=== PATIENT | male | born 1930 | race Caucasian/White ===

== ENCOUNTER 2021-07-23 11:36 | Observation (INO) | payer OTHER ==
[2021-07-23 14:30] LABS: BASO % 0.3 % (0-2.0); EOS % 0.9 % (0-4.5); HEMATOCRIT 29.3 % (35.4-49); HEMOGLOBIN 10.3 GM/dL (11.7-16.9); LYMPH % 7.6 % (8-40); MCH 32.4 pg (25.7-33.7); MEAN CELL VOLUME 92.6 fl (80-96); MEAN PLT VOLUME 9.7 fl (7.5-11.1); MONO % 7.4 % (3.8-10.2); NEUT % 83.8 % (42.8-82.8); PLATELET COUNT 133 10^3/uL (134-434); RBC 3.16 M/mm3 (4.00-5.60); RDW 14.5 % (11.9-15.9); WHITE BLOOD COUNT 9.5 K/mm3 (4.0-10.0)
[2021-07-23 14:36] LABS: INR 1.21 (0.83-1.09); PROTHROMBIN TIME (PATIENT) 13.9 SEC (9.7-13.0)
[2021-07-23 14:38] LABS: ACTIVATED PTT 33.5 SECONDS (25.2-36.5)
[2021-07-23 14:57] LABS: CALCIUM 8.9 mg/dL (8.5-10.1)
[2021-07-23 14:58] LABS: ALBUMIN 3.4 g/dl (3.4-5.0); BLOOD UREA NITROGEN 16.9 mg/dL (7-18)
[2021-07-23 15:01] LABS: CREATININE 0.8 mg/dL (0.55-1.3)
[2021-07-23 15:03] LABS: BILIRUBIN,TOTAL 1.3 mg/dL (0.2-1)
[2021-07-23 15:22] LABS: EPI CELLS 1 /uL (0-25.1); HYALINE CASTS 25 /uL (0-3.1); URINE APPEARANCE TURBID; URINE BILIRUBIN 3+ (NEGATIVE); URINE COLOR RED; URINE GLUCOSE (UA) NEGATIVE (NEGATIVE); URINE KETONE NEGATIVE (NEGATIVE); URINE LEUK ESTERASE 2+ (NEGATIVE); URINE NITRITE POSITIVE (NEGATIVE); URINE PROTEIN 3+ (NEGATIVE); URINE RBC 11890 /uL (0-23.9); URINE UROBILINOGEN 0.2 mg/dL (0.2-1.0); URINE WBC 19 /uL (0-25.8)
[2021-07-23] MEDS ORDERED: CEFTRIAXONE 1,000 MG in DEXTROSE 5%-WATER - 50 ML IVPB ONE (15:29)
[2021-07-23] MEDS ORDERED: CEFTRIAXONE 1 GM/50 ML BAG ONE (15:48)
[2021-07-23 17:00] LABS: URINE BACTERIA FEW /uL (0-1359)
[2021-07-23] MEDS: SODIUM CHLORIDE 1 GM TABLET PO SCH (22:27)
[2021-07-23 23:49] VITALS: BMI 28.0
[2021-07-24] MEDS: SODIUM CHLORIDE 1 GM TABLET PO SCH (10:25)
[2021-07-24 10:30] LABS: BASO % 0.4 % (0-2.0); HEMATOCRIT 28.6 % (35.4-49); HEMOGLOBIN 9.9 GM/dL (11.7-16.9); LYMPH % 9.1 % (8-40); MCH 32.4 pg (25.7-33.7); MCHC 34.6 g/dl (32.0-35.9); MEAN CELL VOLUME 93.6 fl (80-96); MEAN PLT VOLUME 10.1 fl (7.5-11.1); MONO % 8.1 % (3.8-10.2); NEUT % 80.4 % (42.8-82.8); PLATELET COUNT 120 10^3/uL (134-434); RBC 3.06 M/mm3 (4.00-5.60); RDW 14.4 % (11.9-15.9); WHITE BLOOD COUNT 6.7 K/mm3 (4.0-10.0)
[2021-07-24 11:04] LABS: CALCIUM 8.3 mg/dL (8.5-10.1)
[2021-07-24 11:05] LABS: BLOOD UREA NITROGEN 10.2 mg/dL (7-18)
[2021-07-24 11:08] LABS: CREATININE 0.8 mg/dL (0.55-1.3)
[2021-07-24] MEDS ORDERED: SODIUM CHLORIDE 1 GM TABLET PO SCH (11:30)
[2021-07-24] MEDS ORDERED: TAMSULOSIN HCL 0.4 MG CAP PO SCH (12:26)
[2021-07-24] MEDS ORDERED: D5-1/2NS+10 MEQ KCL - 10 MEQ/1,000 ML INFUS.BAG IV SCH (12:45)
[2021-07-24] MEDS ORDERED: cefTRIAXone SODIUM 1 GM VIAL ONE (14:17)
[2021-07-24] MEDS ORDERED: DEXTROSE 5%-WATER - 50 ML IVPB ONE (14:17)
[2021-07-24] MEDS: POTASSIUM CHLORIDE 10 MEQ in DEXTROSE 5%-NORMAL SALINE 1,000 ML IVPB SCH (14:36)
[2021-07-24] MEDS: CEFTRIAXONE 1 GM in DEXTROSE 5%-WATER - 50 ML IVPB SCH (14:37)
[2021-07-24] MEDS: FINASTERIDE 5 MG TABLET (FP) PO SCH (14:38)
[2021-07-24] MEDS: TOLTERODINE TARTRATE LA 4 MG CAP.SR.24H (FP) PO SCH (14:38)
[2021-07-24] MEDS ORDERED: WARFARIN NA 5 MG, WARFARIN NA 2 MG PO SCH (18:00)
[2021-07-24] MEDS ORDERED: WARFARIN NA 1 MG TABLET PO SCH (18:00)
[2021-07-24] MEDS: ATORVASTATIN CA 10 MG TABLET (FP) PO SCH (21:32)
[2021-07-25] MEDS: POTASSIUM CHLORIDE 10 MEQ in DEXTROSE 5%-NORMAL SALINE 1,000 ML IVPB SCH ×2 (02:23→16:58)
[2021-07-25] MEDS: TAMSULOSIN HCL 0.4 MG CAP PO SCH (08:23)
[2021-07-25] MEDS ORDERED: cefTRIAXone SODIUM 1 GM VIAL ONE (09:10)
[2021-07-25] MEDS ORDERED: DEXTROSE 5%-WATER - 50 ML IVPB ONE (09:11)
[2021-07-25] MEDS: CEFTRIAXONE 1 GM in DEXTROSE 5%-WATER - 50 ML IVPB SCH (09:12)
[2021-07-25] MEDS: FINASTERIDE 5 MG TABLET (FP) PO SCH (09:13)
[2021-07-25] MEDS: TOLTERODINE TARTRATE LA 4 MG CAP.SR.24H (FP) PO SCH (09:14)
[2021-07-25 13:07] LABS: BASO % 0.6 % (0-2.0); EOS % 2.7 % (0-4.5); HEMOGLOBIN 9.6 GM/dL (11.7-16.9); LYMPH % 8.1 % (8-40); MCH 32.1 pg (25.7-33.7); MCHC 34.1 g/dl (32.0-35.9); MEAN CELL VOLUME 93.9 fl (80-96); MEAN PLT VOLUME 9.6 fl (7.5-11.1); MONO % 8.6 % (3.8-10.2); PLATELET COUNT 138 10^3/uL (134-434); RBC 2.98 M/mm3 (4.00-5.60); RDW 14.9 % (11.9-15.9); WHITE BLOOD COUNT 7.6 K/mm3 (4.0-10.0)
[2021-07-25 13:24] LABS: BLOOD UREA NITROGEN 9.8 mg/dL (7-18)
[2021-07-25 13:27] LABS: CREATININE 0.7 mg/dL (0.55-1.3)
[2021-07-25] MEDS ORDERED: HEPARIN NA (PORCINE) 5,000 UNITS/ML 1ML VIAL IVPUSH ONE (13:57)
[2021-07-25] MEDS ORDERED: HEPARIN SOD,PORK IN 0.45% NACL 25,000 UNIT/500 ML INFUS.BAG IVPB SCH (14:00)
[2021-07-25 15:35] LABS: ACTIVATED PTT 26.6 SECONDS (25.2-36.5)
[2021-07-25 16:40] LABS: INR 1.16 (0.83-1.09); PROTHROMBIN TIME (PATIENT) 13.4 SEC (9.7-13.0)
[2021-07-25] MEDS: ATORVASTATIN CA 10 MG TABLET (FP) PO SCH (21:23)
[2021-07-26] MEDS: POTASSIUM CHLORIDE 10 MEQ in DEXTROSE 5%-NORMAL SALINE 1,000 ML IVPB SCH (06:00)
[2021-07-26 06:50] LABS: INR 1.19 (0.83-1.09)
[2021-07-26 08:09] LABS: ACTIVATED PTT > 400.0 SECONDS (25.2-36.5)
[2021-07-26 08:37] VITALS: BP 117/56; PULSE 85; TEMP 98.6
[2021-07-26] MEDS: TAMSULOSIN HCL 0.4 MG CAP PO SCH (08:56)
[2021-07-26] MEDS ORDERED: DEXTROSE 5%-WATER - 50 ML IVPB ONE (09:26)
[2021-07-26] MEDS ORDERED: cefTRIAXone SODIUM 1 GM VIAL ONE (09:26)
[2021-07-26] MEDS: TOLTERODINE TARTRATE LA 4 MG CAP.SR.24H (FP) PO SCH (09:29)
[2021-07-26] MEDS: CEFTRIAXONE 1 GM in DEXTROSE 5%-WATER - 50 ML IVPB SCH (09:30)
[2021-07-26] MEDS: FINASTERIDE 5 MG TABLET (FP) PO SCH (09:30)
[2021-07-26] MEDS ORDERED: ENOXAPARIN NA (PORCINE) 80 MG/0.8 ML DISP.SYRIN SQ SCH (10:00)
[2021-07-26 11:18] LABS: BASO % 0.6 % (0-2.0); EOS % 3.3 % (0-4.5); HEMATOCRIT 29.4 % (35.4-49); HEMOGLOBIN 9.9 GM/dL (11.7-16.9); LYMPH % 10.2 % (8-40); MCH 32.2 pg (25.7-33.7); MCHC 33.7 g/dl (32.0-35.9); MEAN CELL VOLUME 95.5 fl (80-96); MEAN PLT VOLUME 9.8 fl (7.5-11.1); MONO % 5.2 % (3.8-10.2); NEUT % 80.7 % (42.8-82.8); PLATELET COUNT 158 10^3/uL (134-434); RBC 3.07 M/mm3 (4.00-5.60); RDW 14.8 % (11.9-15.9); WHITE BLOOD COUNT 6.6 K/mm3 (4.0-10.0)
[2021-07-26 11:57] LABS: CALCIUM 8.3 mg/dL (8.5-10.1)
[2021-07-26 11:58] LABS: BLOOD UREA NITROGEN 8.6 mg/dL (7-18)
[2021-07-26 12:01] LABS: CREATININE 0.7 mg/dL (0.55-1.3)
[2021-07-26] MEDS ORDERED: TAMSULOSIN HCL 0.4 MG CAP PO SCH (22:00)
== END 2021-07-26 13:51 | disposition home or self-care (01) ==
LOC: JER 11:36 → JERBED 14:15 → J6S 20:33
PROVIDERS: ATTEND Internal Medicine
PROC: 3E03329 Introduction of Other Anti-infective into Peripheral Vein, Percutaneous Approach (ICD-10-PCS; principal; 2021-07-23)
PROC: 3E023GC Introduction of Other Therapeutic Substance into Muscle, Percutaneous Approach (ICD-10-PCS; 2021-07-23)
PROC: 3E033GC Introduction of Other Therapeutic Substance into Peripheral Vein, Percutaneous Approach (ICD-10-PCS; 2021-07-23)
PROC: 3E0337Z Introduction of Electrolytic and Water Balance Substance into Peripheral Vein, Percutaneous Approach (ICD-10-PCS; 2021-07-23)
PROC: 0T9B70Z Drainage of Bladder with Drainage Device, Via Natural or Artificial Opening (ICD-10-PCS; 2021-07-23)
DX: N39.0 Urinary tract infection, site not specified (principal); R33.8 Other retention of urine; R31.0 Gross hematuria; E87.1 Hypo-osmolality and hyponatremia; R14.0 Abdominal distension (gaseous); M62.81 Muscle weakness (generalized); D64.9 Anemia, unspecified; D69.6 Thrombocytopenia, unspecified; D72.9 Disorder of white blood cells, unspecified; I48.91 Unspecified atrial fibrillation; Z79.01 Long term (current) use of anticoagulants; N40.0 Benign prostatic hyperplasia without lower urinary tract symptoms; M81.0 Age-related osteoporosis without current pathological fracture; Z87.891 Personal history of nicotine dependence; Z98.49 Cataract extraction status, unspecified eye; D72.0 Genetic anomalies of leukocytes
CPT/HCPCS: 0241U-QW; 36415; 51702; 80048; 80053; 81003; 82728; 83540; 83550; 85025; 85610; 85730; 87086; 93005; 93010; 96361; 96365; 96366; 96372; 96375; 96376; 97116-GP; 99285-25; G0378; J1644

== ENCOUNTER 2021-07-27 13:31 | Inpatient (IN) | payer OTHER ==
[2021-07-27] MEDS ORDERED: SODIUM CHLORIDE 1,000 ML IV STA (15:05)
[2021-07-27] MEDS ORDERED: CEFTRIAXONE 1 GM/50 ML BAG ONE (15:27)
[2021-07-27] MEDS ORDERED: HEPARIN NA (PORCINE) 5,000 UNITS/ML 1ML VIAL IVPUSH ONE (16:27)
[2021-07-27] MEDS ORDERED: HEPARIN NA (PORCINE) 5,000 UNITS/ML 1ML VIAL IVPUSH PRN ×2 (16:28)
[2021-07-27] MEDS ORDERED: metoPROLOL SUCCINATE 25 MG TAB.SR.24H (FP) PO SCH (16:30)
[2021-07-27 16:35] LABS: BASO % 0.5 % (0-2.0); EOS % 3.1 % (0-4.5); HEMATOCRIT 28.8 % (35.4-49); HEMOGLOBIN 9.9 GM/dL (11.7-16.9); LYMPH % 10.9 % (8-40); MCH 32.3 pg (25.7-33.7); MCHC 34.3 g/dl (32.0-35.9); MEAN CELL VOLUME 94.3 fl (80-96); MEAN PLT VOLUME 9.3 fl (7.5-11.1); MONO % 7.1 % (3.8-10.2); NEUT % 78.4 % (42.8-82.8); PLATELET COUNT 194 10^3/uL (134-434); RBC 3.06 M/mm3 (4.00-5.60); RDW 14.8 % (11.9-15.9); WHITE BLOOD COUNT 7.3 K/mm3 (4.0-10.0)
[2021-07-27 17:08] LABS: ALBUMIN 3.4 g/dl (3.4-5.0); BLOOD UREA NITROGEN 13.2 mg/dL (7-18)
[2021-07-27] MEDS ORDERED: HEPARIN NA (PORCINE) 5,000 UNITS/ML 1ML VIAL ONE (17:10)
[2021-07-27 17:11] LABS: CREATININE 0.7 mg/dL (0.55-1.3)
[2021-07-27 17:12] LABS: BILIRUBIN,TOTAL 0.4 mg/dL (0.2-1); TOT PROT 6.4 g/dl (6.4-8.2)
[2021-07-27] MEDS: HEPARIN SOD,PORK IN 0.45% NACL 25,000 UNIT/500 ML INFUS.BAG IVPB SCH (18:21)
[2021-07-27 18:47] LABS: INR 1.06 (0.83-1.09); PROTHROMBIN TIME (PATIENT) 12.2 SEC (9.7-13.0)
[2021-07-27] MEDS ORDERED: ATORVASTATIN CA 10 MG TABLET (FP) PO SCH (22:00)
[2021-07-27] MEDS ORDERED: ATORVASTATIN CA 10 MG TABLET (FP) ONE (23:16)
[2021-07-27] MEDS ORDERED: TAMSULOSIN HCL 0.4 MG CAP ONE (23:16)
[2021-07-27] MEDS: POTASSIUM CHLORIDE 10 MEQ in DEXTROSE 5%-NORMAL SALINE 1,000 ML IVPB SCH (23:33)
[2021-07-27] MEDS: TAMSULOSIN HCL 0.4 MG CAP PO SCH (23:33)
[2021-07-28] MEDS: POTASSIUM CHLORIDE 10 MEQ in DEXTROSE 5%-NORMAL SALINE 1,000 ML IVPB SCH ×2 (08:06→19:40)
[2021-07-28 09:24] LABS: BASO % 0.5 % (0-2.0); EOS % 3.3 % (0-4.5); HEMATOCRIT 24.4 % (35.4-49); HEMOGLOBIN 8.4 GM/dL (11.7-16.9); LYMPH % 10.1 % (8-40); MCH 32.3 pg (25.7-33.7); MCHC 34.6 g/dl (32.0-35.9); MEAN CELL VOLUME 93.5 fl (80-96); MEAN PLT VOLUME 9.5 fl (7.5-11.1); MONO % 6.9 % (3.8-10.2); NEUT % 79.2 % (42.8-82.8); PLATELET COUNT 163 10^3/uL (134-434); RBC 2.61 M/mm3 (4.00-5.60); WHITE BLOOD COUNT 5.9 K/mm3 (4.0-10.0)
[2021-07-28 09:46] LABS: CALCIUM 8.4 mg/dL (8.5-10.1)
[2021-07-28 09:48] LABS: BLOOD UREA NITROGEN 10.1 mg/dL (7-18)
[2021-07-28 09:50] LABS: CREATININE 0.7 mg/dL (0.55-1.3)
[2021-07-28] MEDS ORDERED: FINASTERIDE 5 MG TABLET (FP) PO SCH (10:00)
[2021-07-28] MEDS ORDERED: TOLTERODINE TARTRATE LA 4 MG CAP.SR.24H (FP) PO SCH (10:00)
[2021-07-28] MEDS ORDERED: TAMSULOSIN HCL 0.4 MG CAP ONE (10:40)
[2021-07-28] MEDS ORDERED: metoPROLOL SUCCINATE 25 MG TAB.SR.24H (FP) PO ONE (10:40)
[2021-07-28] MEDS: TAMSULOSIN HCL 0.4 MG CAP PO SCH ×2 (10:56→21:45)
[2021-07-28] MEDS: HEPARIN SOD,PORK IN 0.45% NACL 25,000 UNIT/500 ML INFUS.BAG IVPB SCH (15:51)
[2021-07-28] MEDS ORDERED: ONDANSETRON 4 MG/2 ML VIAL IVPUSH PRN ×2 (16:29→18:16)
[2021-07-28] MEDS ORDERED: IRON SUCROSE INJECTION 300 MG in SODIUM CHLORIDE 235 ML IVPB ONE ×2 (16:30→18:16)
[2021-07-28] MEDS ORDERED: LACTATED RINGERS SOLUTION 1,000 ML IV SCH ×2 (16:30→18:16)
[2021-07-28] MEDS ORDERED: LIDOCAINE HCL/PF 2% SDV 5ML VIAL ONE (16:36)
[2021-07-28] MEDS ORDERED: PROPOFOL 20 ML ONE (16:37)
[2021-07-28 16:43] LABS: INR 1.11 (0.83-1.09); PROTHROMBIN TIME (PATIENT) 12.8 SEC (9.7-13.0)
[2021-07-28] MEDS ORDERED: VANCOMYCIN 1,000 MG VIAL (RESTRICTED TO ID ONLY) IVPB ONE (17:20)
[2021-07-28] MEDS ORDERED: METOPROLOL TARTRATE 5 MG/5 ML VIAL ONE (17:24)
[2021-07-28] MEDS ORDERED: HEPARIN SOD,PORK IN 0.45% NACL 25,000 UNIT/500 ML INFUS.BAG IVPB SCH ×2 (18:16→22:00)
[2021-07-28] MEDS ORDERED: HEPARIN NA (PORCINE) 5,000 UNITS/ML 1ML VIAL IVPUSH PRN (18:16)
[2021-07-28] MEDS ORDERED: DEXTROSE 5%-WATER - 50 ML IVPB ONE (19:58)
[2021-07-28] MEDS ORDERED: cefTRIAXone SODIUM 1 GM VIAL ONE (19:58)
[2021-07-28] MEDS: CEFTRIAXONE 1 GM in DEXTROSE 5%-WATER - 50 ML IVPB SCH (20:01)
[2021-07-28] MEDS: metoPROLOL SUCCINATE 25 MG TAB.SR.24H (FP) PO SCH ×2 (20:04→20:05)
[2021-07-28 20:30] VITALS: BMI 25.7
[2021-07-28] MEDS: ATORVASTATIN CA 10 MG TABLET (FP) PO SCH (21:45)
[2021-07-29 00:47] LABS: EPI CELLS 3 /uL (0-25.1); HYALINE CASTS 1 /uL (0-3.1); PH,URINE 8.5 (5.0-8.0); URINE APPEARANCE CLEAR; URINE BACTERIA 1 /uL (0-1359); URINE BILIRUBIN NEGATIVE (NEGATIVE); URINE COLOR YELLOW; URINE GLUCOSE (UA) NEGATIVE (NEGATIVE); URINE KETONE NEGATIVE (NEGATIVE); URINE LEUK ESTERASE TRACE (NEGATIVE); URINE NITRITE NEGATIVE (NEGATIVE); URINE PROTEIN 2+ (NEGATIVE); URINE RBC 279 /uL (0-23.9); URINE WBC 12 /uL (0-25.8)
[2021-07-29] MEDS ORDERED: HEPARIN NA (PORCINE) 5,000 UNITS/ML 1ML VIAL IVPUSH PRN (07:00)
[2021-07-29] MEDS ORDERED: DEXTROSE 5%-WATER - 50 ML IVPB ONE (10:20)
[2021-07-29] MEDS ORDERED: cefTRIAXone SODIUM 1 GM VIAL ONE (10:20)
[2021-07-29] MEDS: CEFTRIAXONE 1 GM in DEXTROSE 5%-WATER - 50 ML IVPB SCH (10:34)
[2021-07-29] MEDS: metoPROLOL SUCCINATE 25 MG TAB.SR.24H (FP) PO SCH (10:35)
[2021-07-29] MEDS: TOLTERODINE TARTRATE LA 4 MG CAP.SR.24H (FP) PO SCH (10:35)
[2021-07-29] MEDS: FINASTERIDE 5 MG TABLET (FP) PO SCH (10:35)
[2021-07-29] MEDS: TAMSULOSIN HCL 0.4 MG CAP PO SCH ×2 (10:35→23:18)
[2021-07-29 10:58] LABS: HEMATOCRIT 24.9 % (35.4-49); HEMOGLOBIN 8.3 GM/dL (11.7-16.9); MCH 31.8 pg (25.7-33.7); MCHC 33.6 g/dl (32.0-35.9); MEAN CELL VOLUME 94.8 fl (80-96); MEAN PLT VOLUME 9.1 fl (7.5-11.1); PLATELET COUNT 160 10^3/uL (134-434); RBC 2.62 M/mm3 (4.00-5.60); RDW 14.6 % (11.9-15.9); WHITE BLOOD COUNT 7.5 K/mm3 (4.0-10.0)
[2021-07-29 11:14] LABS: BLOOD UREA NITROGEN 8.8 mg/dL (7-18); CALCIUM 8.2 mg/dL (8.5-10.1)
[2021-07-29 11:17] LABS: CREATININE 0.8 mg/dL (0.55-1.3)
[2021-07-29] MEDS ORDERED: ENOXAPARIN NA (PORCINE) 80 MG/0.8 ML DISP.SYRIN SQ SCH ×2 (11:45→14:00)
[2021-07-29] MEDS: POTASSIUM CHLORIDE 10 MEQ in DEXTROSE 5%-NORMAL SALINE 1,000 ML IVPB SCH ×2 (12:26→21:35)
[2021-07-29] MEDS: ENOXAPARIN NA (PORCINE) 100 MG/1 ML DISP.SYRIN SQ SCH (23:18)
[2021-07-29] MEDS: ATORVASTATIN CA 10 MG TABLET (FP) PO SCH (23:18)
[2021-07-30 08:33] LABS: BASO % 0.5 % (0-2.0); EOS % 2.9 % (0-4.5); HEMATOCRIT 24.8 % (35.4-49); HEMOGLOBIN 8.5 GM/dL (11.7-16.9); LYMPH % 8.3 % (8-40); MCH 32.1 pg (25.7-33.7); MCHC 34.2 g/dl (32.0-35.9); MEAN CELL VOLUME 93.9 fl (80-96); MEAN PLT VOLUME 8.6 fl (7.5-11.1); MONO % 8.9 % (3.8-10.2); NEUT % 79.4 % (42.8-82.8); PLATELET COUNT 164 10^3/uL (134-434); RBC 2.65 M/mm3 (4.00-5.60); RDW 14.8 % (11.9-15.9); WHITE BLOOD COUNT 6.4 K/mm3 (4.0-10.0)
[2021-07-30 09:02] LABS: BLOOD UREA NITROGEN 8.6 mg/dL (7-18); CALCIUM 8.3 mg/dL (8.5-10.1)
[2021-07-30 09:05] LABS: CREATININE 0.7 mg/dL (0.55-1.3)
[2021-07-30] MEDS ORDERED: cefTRIAXone SODIUM 1 GM VIAL ONE (09:17)
[2021-07-30] MEDS ORDERED: DEXTROSE 5%-WATER - 50 ML IVPB ONE (09:18)
[2021-07-30] MEDS: POTASSIUM CHLORIDE 10 MEQ in DEXTROSE 5%-NORMAL SALINE 1,000 ML IVPB SCH ×2 (09:26→09:53)
[2021-07-30] MEDS: CEFTRIAXONE 1 GM in DEXTROSE 5%-WATER - 50 ML IVPB SCH (09:27)
[2021-07-30] MEDS: TAMSULOSIN HCL 0.4 MG CAP PO SCH ×2 (09:28→22:39)
[2021-07-30] MEDS: FINASTERIDE 5 MG TABLET (FP) PO SCH (09:29)
[2021-07-30] MEDS: metoPROLOL SUCCINATE 25 MG TAB.SR.24H (FP) PO SCH (09:29)
[2021-07-30] MEDS: TOLTERODINE TARTRATE LA 4 MG CAP.SR.24H (FP) PO SCH (09:29)
[2021-07-30] MEDS: ENOXAPARIN NA (PORCINE) 100 MG/1 ML DISP.SYRIN SQ SCH ×2 (09:30→22:40)
[2021-07-30] MEDS: FLUOCINONIDE 0.05% TOP OINT (60 GM TUBE) TP SCH ×2 (09:31→22:40)
[2021-07-30] MEDS ORDERED: WARFARIN NA 10 MG TABLET PO ONE (18:00)
[2021-07-30] MEDS: ATORVASTATIN CA 10 MG TABLET (FP) PO SCH (22:39)
[2021-07-31] MEDS: POTASSIUM CHLORIDE 10 MEQ in DEXTROSE 5%-NORMAL SALINE 1,000 ML IVPB SCH ×2 (02:08→17:17)
[2021-07-31 08:52] LABS: BASO % 0.7 % (0-2.0); EOS % 2.6 % (0-4.5); HEMATOCRIT 24.9 % (35.4-49); HEMOGLOBIN 8.3 GM/dL (11.7-16.9); LYMPH % 6.5 % (8-40); MCH 31.9 pg (25.7-33.7); MCHC 33.5 g/dl (32.0-35.9); MEAN CELL VOLUME 95.3 fl (80-96); MEAN PLT VOLUME 8.5 fl (7.5-11.1); MONO % 6.8 % (3.8-10.2); NEUT % 83.4 % (42.8-82.8); PLATELET COUNT 167 10^3/uL (134-434); RBC 2.61 M/mm3 (4.00-5.60); RDW 14.9 % (11.9-15.9); WHITE BLOOD COUNT 7.1 K/mm3 (4.0-10.0)
[2021-07-31 09:11] LABS: CALCIUM 8.1 mg/dL (8.5-10.1)
[2021-07-31 09:12] LABS: BLOOD UREA NITROGEN 8.3 mg/dL (7-18)
[2021-07-31] MEDS ORDERED: DEXTROSE 5%-WATER - 50 ML IVPB ONE (09:13)
[2021-07-31] MEDS ORDERED: cefTRIAXone SODIUM 1 GM VIAL ONE (09:13)
[2021-07-31 09:16] LABS: CREATININE 0.7 mg/dL (0.55-1.3)
[2021-07-31] MEDS: ENOXAPARIN NA (PORCINE) 100 MG/1 ML DISP.SYRIN SQ SCH ×2 (09:17→21:55)
[2021-07-31] MEDS: TOLTERODINE TARTRATE LA 4 MG CAP.SR.24H (FP) PO SCH (09:19)
[2021-07-31] MEDS: TAMSULOSIN HCL 0.4 MG CAP PO SCH ×2 (09:19→21:55)
[2021-07-31] MEDS: metoPROLOL SUCCINATE 25 MG TAB.SR.24H (FP) PO SCH (09:19)
[2021-07-31] MEDS: FINASTERIDE 5 MG TABLET (FP) PO SCH (09:19)
[2021-07-31] MEDS: CEFTRIAXONE 1 GM in DEXTROSE 5%-WATER - 50 ML IVPB SCH (09:20)
[2021-07-31] MEDS: FLUOCINONIDE 0.05% TOP OINT (60 GM TUBE) TP SCH ×2 (09:21→21:56)
[2021-07-31] MEDS: ATORVASTATIN CA 10 MG TABLET (FP) PO SCH (21:55)
[2021-08-01 07:32] VITALS: BP 113/45; PULSE 77; TEMP 98.4
[2021-08-01] MEDS: TAMSULOSIN HCL 0.4 MG CAP PO SCH (09:39)
[2021-08-01] MEDS: metoPROLOL SUCCINATE 25 MG TAB.SR.24H (FP) PO SCH (09:39)
[2021-08-01] MEDS: FLUOCINONIDE 0.05% TOP OINT (60 GM TUBE) TP SCH (09:39)
[2021-08-01] MEDS: FINASTERIDE 5 MG TABLET (FP) PO SCH (09:39)
[2021-08-01] MEDS: ENOXAPARIN NA (PORCINE) 100 MG/1 ML DISP.SYRIN SQ SCH (09:39)
[2021-08-01] MEDS: TOLTERODINE TARTRATE LA 4 MG CAP.SR.24H (FP) PO SCH (09:40)
[2021-08-01 09:54] LABS: HEMATOCRIT 28.9 % (35.4-49); HEMOGLOBIN 9.7 GM/dL (11.7-16.9); MCHC 33.4 g/dl (32.0-35.9); MEAN CELL VOLUME 95.8 fl (80-96); PLATELET COUNT 201 10^3/uL (134-434); RBC 3.02 M/mm3 (4.00-5.60); RDW 15.3 % (11.9-15.9); WHITE BLOOD COUNT 7.8 K/mm3 (4.0-10.0)
== END 2021-08-01 11:23 | disposition home health service (06) | DRG 988 ==
LOC: JER 13:31 → JERBED 15:07 → J5S 07-28 14:38
PROVIDERS: ADMIT Internal Medicine; ATTEND Internal Medicine
PROC: 0VT08ZZ Resection of Prostate, Via Natural or Artificial Opening Endoscopic (ICD-10-PCS; principal; 2021-07-27)
PROC: 0V508ZZ Destruction of Prostate, Via Natural or Artificial Opening Endoscopic (ICD-10-PCS; 2021-07-27)
PROC: 0TCB8ZZ Extirpation of Matter from Bladder, Via Natural or Artificial Opening Endoscopic (ICD-10-PCS; 2021-07-27)
DX: N99.820 Postprocedural hemorrhage of a genitourinary system organ or structure following a genitourinary system procedure (principal); D68.32 Hemorrhagic disorder due to extrinsic circulating anticoagulants; N39.0 Urinary tract infection, site not specified; E87.1 Hypo-osmolality and hyponatremia; T45.515A Adverse effect of anticoagulants, initial encounter; D69.6 Thrombocytopenia, unspecified; E78.5 Hyperlipidemia, unspecified; I48.91 Unspecified atrial fibrillation; I10 Essential (primary) hypertension; D64.9 Anemia, unspecified; N40.0 Benign prostatic hyperplasia without lower urinary tract symptoms; N32.81 Overactive bladder; R31.0 Gross hematuria; R26.81 Unsteadiness on feet; R21 Rash and other nonspecific skin eruption; M85.80 Other specified disorders of bone density and structure, unspecified site; M62.81 Muscle weakness (generalized); R10.2 Pelvic and perineal pain; Z88.8 Allergy status to other drugs, medicaments and biological substances; Z79.01 Long term (current) use of anticoagulants; Z95.2 Presence of prosthetic heart valve; Y83.8 Other surgical procedures as the cause of abnormal reaction of the patient, or of later complication, without mention of misadventure at the time of the procedure
CPT/HCPCS: 36415; 80048; 80053; 81003; 82728; 83540; 83550; 85025; 85027; 85610; 85730; 86850; 86900; 86901; 87086; 88305-TC; 93005; 93010; 94760; 97116-GP; 97161-GP; 99285-25; C9803-CS; G0378; J1644; J1756; U0003; U0005